=== PATIENT | female | born 1950 | race Caucasian/White ===

== ENCOUNTER → 2019-08-10 | Day surgery (SDC) | payer OTHER ==
[~2019-08-10] VITALS: Ht 157.5 cm; Wt 72.6 kg
[~2019-08-10] MED LIST: COREG6.25 MG PO; FISH OIL 1,0001 EAC9 PO; FLONASE 0.05%50 MCG NARES; LEVOXYL100 MCG PO; METFORMIN HCL500 M3 PO; NEURONTIN300 MG PO; ROSUVASTATIN CA20 MG PO; ZESTORETIC 20-1 EAC3 PO
--- NOTE | ~2019-08-10 | O ---
[facility] [place] [address] OPERATIVE REPORT Name: GILBERTO CARVALHO Room #: REG [facility]#: [id number] Admission: 08/10/19 Attend Phys: Rasta Barry MD Discharge: Date of : 48 Report #: [id number] THIS REPORT FOR: cc: CHRIS BAILEY Physician not on staff Federico Castillo MD ~ CC: CHRIS Castillo Physician staff Rasta Barry DATE OF SERVICE: 08/10/2019 PREOPERATIVE DIAGNOSES: Deviated nasal septum with nasal airway obstruction, Graves' disease with orbital proptosis. POSTOPERATIVE DIAGNOSES: Deviated nasal septum with nasal airway obstruction, Graves' disease with orbital proptosis. OPERATIVE PROCEDURE: Nasal septoplasty, left endoscopic medial and inferior orbital wall decompression in conjunction with a lateral transcutaneous decompression and tarsorrhaphy. SURGEONS: Dr. Federico Castillo and Dr. Barry. ANESTHESIA: General by laryngeal mask. DESCRIPTION OF PROCEDURE: The patient was taken to the operating room and placed in supine position. General anesthesia was induced by laryngeal mask. Once adequate general anesthesia was obtained, local nasal anesthesia was induced by submucoperichondrial injection of 1% lidocaine with 1:100,000 epinephrine and topical application of cocaine solution. The patient was then prepared and draped in a sterile manner. The patient had nasal septal deviation primarily to the left side. A hemitransfixion incision was placed on the left side of the nose and the mucoperichondrium and mucoperiosteum was elevated off the septum. The cartilage was incised in front of the bony cartilaginous junction and a portion of cartilage and bone was removed from the midportion of the septum. She had a very large septal spur at the vomer protruding into the inferior and middle meatus and this bone was rongeured and removed. The hemitransfixion incision was then closed with 4-0 chromic suture and a 4-0 plain mattress sutures placed as well. The nasal endoscope was used to visualize the left nasal cavity and the middle turbinate was deviated medially. The uncinate process was removed using the microdebrider and the natural opening maxillary sinus was located, it was enlarged in a posterior inferior manner by removing the soft fontanelle. An ethmoidectomy was performed by removing the ethmoidal bulla and then followed by the ethmoid air cells back to and through the [address] [address] OPERATIVE REPORT Name: GILBERTO CARVALHO [id number] Admission: 08/10/19 Attend Phys: Rasta Barry MD Discharge: Date of : 48 Report #: [id number] lamella and then forward along the lamina papyracea and fovea ethmoidalis to complete the ethmoidectomy anteriorly. The lamina papyracea bone was exposed from the anterior face of the sphenoid posteriorly to the fovea ethmoidalis superiorly to the root of the uncinate process anteriorly and into the maxillary sinus inferiorly. Using a blunt tipped seeker instrument, the bone was slowly chipped away to expose the underlying periorbita. The periorbita was then incised with 2 horizontal incisions, one superiorly and one inferiorly. These were then connected in the middle and the orbital fat was allowed to prolapse into the ethmoid cavity. A rolled piece of Merogel was placed between the middle turbinate and lateral wall of the nose to prevent scarring and to promote hemostasis. At this point, Dr. Barry performed a lateral transcutaneous decompression and tarsorrhaphy. At the conclusion of the procedure, the patient was then awoken and taken to the recovery room in stable condition for postoperative monitoring. Blood loss approximately 25 mL. By: 1709 1721 Federico Castillo MD /nt
--- NOTE | ~2019-08-10 | O ---
[facility] [place] [address] OPERATIVE REPORT Name: GILBERTO CARVALHO Room #: REG [facility]#: [id number] Admission: 08/10/19 Attend Phys: Rasta Barry MD Discharge: Date of : 48 Report #: [id number] THIS REPORT FOR: cc: CHRIS BAILEY Physician not on staff Rasta Barry MD ~ CC: SRAVANTHI Castillo MD Physician staff Rasta Barry DATE OF SERVICE: 08/10/2019 PREOPERATIVE DIAGNOSIS: Graves' orbitopathy. POSTOPERATIVE DIAGNOSIS: Graves' orbitopathy. PROCEDURE: Left lateral orbital decompression with temporary tarsorrhaphy. SURGEON: Rasta Barry MD. ENGINE INSTALLER: Federico Castillo MD ANESTHESIA: General. COMPLICATIONS: None. ESTIMATED BLOOD LOSS: 25 mL. INDICATIONS FOR SURGERY: This pleasant 68-year-old woman with Graves' disease and dry eyes, visual field loss, lid retraction and profound proptosis, presents for combined endoscopic medial wall and floor orbital decompression combined with a transcutaneous lateral orbital decompression and temporary tarsorrhaphy. Informed consent was obtained to include but not limited to the potential risk for loss of vision, double vision, bleeding, infection, [id number] the problem, scarring, and the potential need for further surgery including surgery for double vision. Informed consent was obtained to include but not limited to the potential risk of loss of vision, double vision, bleeding, infection, scarring, failure to improve the problem and the potential need for further surgery. DESCRIPTION OF OPERATION: The patient was taken to the operating room, where [facility] [address] [place] [address] OPERATIVE REPORT Name: GILBERTO CARVALHO Room #: REG [facility].#: [id number] Admission: 08/10/19 Attend Phys: Rasta Barry MD Discharge: Date of : 48 Report #: [id number] general anesthesia was administered. The lateral upper lid was then anesthetized with 2% Xylocaine with epinephrine mixed with equal parts of 0.75% Marcaine with Wydase. The infratemporal fossa was then anesthetized with the same anesthetic mixture. The patient was subsequently prepped and draped in the usual sterile fashion. Dr. Castillo prepared the nose with vasoconstrictive-soaked Cottonoids and intranasal mucosal injections. The patient received intravenous Decadron and antibiotics at the beginning of the procedure. After being sterilely prepped and draped, a temporary tarsorrhaphy was fashioned from a short section of IV tubing and a double-armed 5-0 nylon suture. It was placed at the junction of the medial 2/3 and the 1/3 of the eyelid. The transnasal portion of the procedure was then resumed. After the transnasal, endoscopic, medial wall and floor, and orbital decompression had been accomplished and the nose repacked with vasoconstrictive-soaked Cottonoids, the extended upper lid crease incision was reanesthetized. The Cottonoids were removed and the periosteum was opened to allow the fat transnasally to decompress into the newly created space. The nose was then repacked and gloves were changed and instruments switched out as the lateral orbital decompression was commenced. A curvilinear incision was initially outlined and then made with a 15-C blade, extending a lid crease incision into the infratemporal fossa. The dissection was then carried down to periosteum with the Ellsworth needle, obtaining hemostasis with diligent monopolar cautery. The periosteum was then sharply incised and then gently reflected medially out of the lateral orbit. The zygomatic facial and zygomatic temporal neurovascular bundles were identified and cauterized as they were encountered. The orbital contents were then retracted and protected with the malleable retractor as the skin from the inferior portion of the wound was protected with a skin rake. A 3.5-mm cutting/irrigating drill was then used to thin the bone at the lateral orbit. The anterior limit of the dissection was the lateral orbital rim. The superior and inferior limits of the dissection were the orbital roof and floor respectively. Hemostasis was reachieved with monopolar cautery and judicious use of bone wax. The periosteum of the lateral orbit was then incised with the Ellsworth needle. A large H-shaped flap in the periosteum was then created, allowing the fat to billow out into the newly created space. The periosteum was then closed with interrupted buried 5-0 Vicryl sutures. The subcutaneous structures were closed with interrupted 5-0 Vicryl sutures. The skin was then closed with 6-0 plain gut sutures. The wound was dressed with erythromycin ointment followed by Telfa pad. The temporary nasal packing was removed and absorbable nasal pack placed. [address] [address] OPERATIVE REPORT Name: WALEDonnyGILBERTO Room #: REG [facility]#: [id number] Admission: 08/10/19 Attend Phys: Rasta Barry MD Discharge: Date of : 48 Report #: [id number] The patient was subsequently transported to the recovery area, having tolerated the procedure well with no anesthetic or operative complications being noted. By: 1708 1736 Rasta Barry MD /nt
[2019-08-10 14:00] VITALS: BP 145/88
--- NOTE | 2019-08-10 17:17 | H ---
[facility] [place] [address] HISTORY AND PHYSICAL Name: GILBERTO CARVALHO Room #: REG [facility]#: [id number] Admission: 08/10/19 Attend Phys: Rasta Barry MD Discharge: Date of : 48 Report #: [id number] THIS REPORT FOR: cc: CHRIS BAILEY Physician not on staff Federico Castillo MD ~ CC: CHRIS Castillo Physician staff Rasta Barry DATE OF SERVICE: 08/10/2019 DATE OF PROCEDURE: 08/10/2019 HISTORY OF PRESENT ILLNESS: The patient has Graves' disease and has been having problems with her eyes. She has had double vision as well as loss of vision, especially on the left side. She has some mild sinus issues with difficulty breathing through her nose. A CT scan of her sinuses shows severe proptosis with hypertrophy of the extraocular muscles and orbital fat. She has a deviated nasal septum to the left side, especially in the inferior meatus indenting the inferior turbinate. PAST MEDICAL HISTORY: Otherwise significant for cervical cancer, diabetes and high blood pressure. MEDICATIONS: Include gabapentin, Synthroid, lisinopril, metformin, rosuvastatin, vitamin D. ALLERGIES: She has no known drug allergies. PHYSICAL EXAMINATION: She had quite a bit of congestion in her nose with a deviated nasal septum to the left side with the septum indenting the inferior turbinate. IMPRESSION: Graves' disease and deviated nasal septum. PLAN: Nasal septoplasty, left endoscopic medial and inferior orbital wall decompression in conjunction with a lateral transcutaneous decompression and tarsorrhaphy with Dr. Barry. <ELECTRONICALLY SIGNED> By: Federico Castillo MD 08/10/19 1717 [id number] [id number] Federico Castillo MD /nt
== END | disposition home or self-care (01) ==
LOC: OR
DX: J34.2 Deviated nasal septum (principal); J34.89 Other specified disorders of nose and nasal sinuses; E05.00 Thyrotoxicosis with diffuse goiter without thyrotoxic crisis or storm; H05.242 Constant exophthalmos, left eye; I10 Essential (primary) hypertension; E11.9 Type 2 diabetes mellitus without complications; E78.00 Pure hypercholesterolemia, unspecified; E03.9 Hypothyroidism, unspecified; Z98.890 Other specified postprocedural states; Z79.899 Other long term (current) drug therapy; Z87.891 Personal history of nicotine dependence; Z98.51 Tubal ligation status; Z85.41 Personal history of malignant neoplasm of cervix uteri; Z98.41 Cataract extraction status, right eye; Z98.42 Cataract extraction status, left eye
CPT/HCPCS: 50010; 50101; 50386; 50398; 50505; 50573; 51636; 53635; 55340; 56528; 56531; 56635; 57246; 62110; 62900; 64037; 70005

== ENCOUNTER 2019-08-24 13:00 | Day surgery (SDC) | payer OTHER ==
[~2019-08-24] VITALS: Ht 157.5 cm; Wt 71.2 kg
--- NOTE | ~2019-08-24 | H ---
[facility] [place] [address] HISTORY AND PHYSICAL Name: GILBERTO CARVALHO Room #: PRE [facility] M..#: [id number] Admission: Attend Phys: Rasta Barry MD Discharge: Date of : 48 Report #: [id number] THIS REPORT FOR: cc: CHRIS BAILEY Physician not on staff Federico Castillo MD ~ CC: CHRIS Castillo Physician staff Rasta Barry DATE OF PROCEDURE: 08/24/2019. HISTORY OF PRESENT ILLNESS: The patient has Graves' disease and has been having problems with her eyes. She has double vision as well as loss of vision, especially on the left side. She has some mild sinus issues with difficulty breathing through her nose. She underwent a nasal septoplasty and left endoscopic medial and inferior orbital wall decompression on August 09 and she is now scheduled for the right eye procedure. PAST MEDICAL HISTORY: Otherwise, significant for cervical cancer, diabetes and high blood pressure. MEDICATIONS: Gabapentin, Synthroid, lisinopril, metformin, rosuvastatin, vitamin D. ALLERGIES: She has no known drug allergies. PHYSICAL EXAMINATION: She is healing from her previous surgery with some mild crusting in her nose. IMPRESSION: Graves' disease. PLAN: Right endoscopic medial and inferior orbital wall decompression in conjunction with a lateral transcutaneous decompression and tarsorrhaphy with Dr. Barry. By: 1334 1349 Federico Castillo MD /nt
--- NOTE | ~2019-08-24 | O ---
[facility] [place] [address] OPERATIVE REPORT Name: GILBERTO CARVALHO Room #: DEP [facility].#: [id number] Admission: 08/24/19 Attend Phys: Rasta Barry MD Discharge: 08/24/19 Date of : 48 Report #: [id number] THIS REPORT FOR: cc: CHRIS BAILEY Physician not on staff Rasta Barry MD ~ CC: CHRIS Metzger MD Physician staff Rasta Barry DATE OF SERVICE: 08/24/2019 PREOPERATIVE DIAGNOSIS: Graves' disease. POSTOPERATIVE DIAGNOSIS: Graves' disease. PROCEDURE: Right lateral orbit decompression with temporary tarsorrhaphy. SURGEON: Rasta Barry MD. PATIENT COMPANION: Federico Castillo MD ANESTHESIA: General. COMPLICATIONS: None. ESTIMATED BLOOD LOSS: 25 mL. INDICATIONS FOR SURGERY: This pleasant 68-year-old woman with Graves' disease and profound proptosis, lid retraction, visual field loss and dry eyes, presents for a combined endoscopic medial wall and floor orbital decompression done in conjunction with a transcutaneous lateral orbital decompression and temporary tarsorrhaphy of the right eye. She has undergone a previous successful procedure on the opposite side. Informed consent was obtained to include but not limited to the potential risk for loss of vision, double vision, bleeding, infection, failure to improve the problem, scarring, the potential need for further surgery including surgery for double vision. Informed consent was obtained to include but not limited to the potential risk of loss of vision, double vision, bleeding, infection, scarring, failure to improve the problem and the potential need for further surgery. DESCRIPTION OF OPERATION: The patient was taken to the operating room, where [address] [address] OPERATIVE REPORT Name: GILBERTO CARVALHO Tai Room #: DEP [facility].#: [id number] Admission: 08/24/19 Attend Phys: Rasta Barry MD Discharge: 08/24/19 Date of : 48 Report #: [id number] general anesthesia was administered. The lateral upper lid was then anesthetized with 2% Xylocaine with epinephrine mixed with equal parts of 0.75% Marcaine with Wydase. The infratemporal fossa was then anesthetized with the same anesthetic mixture. The patient was subsequently prepped and draped in the usual sterile fashion. Dr. Castillo prepared the nose with vasoconstrictive-soaked Cottonoids and intranasal mucosal injections. The patient received intravenous Decadron and antibiotics at the beginning of the procedure. After being sterilely prepped and draped, a temporary tarsorrhaphy was fashioned from a short section of IV tubing and a double-armed 5-0 nylon suture. It was placed at the junction of the medial 2/3 and the 1/3 of the eyelid. The transnasal portion of the procedure was then resumed. After the transnasal, endoscopic, medial wall and floor, and orbital decompression had been accomplished and the nose repacked with vasoconstrictive-soaked Cottonoids, the extended upper lid crease incision was reanesthetized. The Cottonoids were removed and the periosteum was opened to allow the fat transnasally to decompress into the newly created space. The nose was then repacked and gloves were changed and instruments switched out as the lateral orbital decompression was commenced. A curvilinear incision was initially outlined and then made with a 15-C blade, extending a lid crease incision into the infratemporal fossa. The dissection was then carried down to periosteum with the Ellsworth needle, obtaining hemostasis with diligent monopolar cautery. The periosteum was then sharply incised and then gently reflected medially out of the lateral orbit. The zygomatic facial and zygomatic temporal neurovascular bundles were identified and cauterized as they were encountered. The orbital contents were then retracted and protected with the malleable retractor as the skin from the inferior portion of the wound was protected with a skin rake. A 3.5-mm cutting/irrigating drill was then used to thin the bone at the lateral orbit. The anterior limit of the dissection was the lateral orbital rim. The superior and inferior limits of the dissection were the orbital roof and floor respectively. Hemostasis was reachieved with monopolar cautery and judicious use of bone wax. The periosteum of the lateral orbit was then incised with the Ellsworth needle. A large H-shaped flap in the periosteum was then created, allowing the fat to billow out into the newly created space. The periosteum was then closed with interrupted buried 5-0 Vicryl sutures. The subcutaneous structures were closed with interrupted 5-0 Vicryl sutures. The skin was then closed with 6-0 plain gut sutures. The wound was dressed with erythromycin ointment followed by Telfa pad. The temporary nasal packing was removed and absorbable nasal pack placed. [facility] [address] [place] [address] OPERATIVE REPORT Name: GILBERTO CARVALHO [facility]: [facility]#: [id number] Admission: 08/24/19 Attend Phys: Rasta Barry MD Discharge: 08/24/19 Date of : 48 Report #: [id number] The patient was subsequently transported to the recovery area, having tolerated the procedure well with no anesthetic or operative complications being noted. By: 1657 1821 Rasta Barry MD /nt
--- NOTE | ~2019-08-24 | O ---
[facility] [place] [address] OPERATIVE REPORT Name: GILBERTO CARVALHO Room #: 150-5 [facility]#: [id number] Admission: 08/24/19 Attend Phys: Rasta Barry MD Discharge: Date of : 48 Report #: [id number] THIS REPORT FOR: cc: CHRIS BAILEY Physician not on staff Federico Castillo MD ~ CC: CHRIS Castillo Physician staff Rasta Barry DATE OF SERVICE: 08/24/2019 PREOPERATIVE DIAGNOSIS: Graves' disease. POSTOPERATIVE DIAGNOSIS: Graves' disease. OPERATIVE PROCEDURE: Endoscopic right medial and inferior orbital wall decompression in conjunction with a lateral transcutaneous decompression and tarsorrhaphy. SURGEONS: Dr. Castillo and Dr. Barry ANESTHESIA: General by laryngeal mask. DESCRIPTION OF PROCEDURE: The patient was taken to the operating room and placed in the supine position. General anesthesia was induced by laryngeal mask. Once adequate general anesthesia was obtained, local nasal anesthesia was induced by submucoperiosteal injection of 1% lidocaine with 1:100,000 epinephrine and topical application of cocaine solution. The patient was then prepared and draped in a sterile manner. The nasal endoscope was used to visualize the left nasal cavity. I debrided the left side in the middle meatus removing old blood from the maxillary sinus and from the ethmoid air cells and removing the remainder of the Merogel that was in it. On the right side, the middle turbinate was deviated medially. The uncinate process was removed using the microdebrider and opening of the maxillary sinus was located. It was enlarged in a posterior inferior manner by removing the soft fontanelle. An ethmoidectomy was performed by removing the ethmoidal bulla and then following the ethmoid air cells back to and through the basal lamella and then forward along the lamina papyracea and fovea ethmoidalis to complete the ethmoidectomy anteriorly. The lamina papyracea bone was exposed from the anterior face of the sphenoid posteriorly to the fovea ethmoidalis superiorly to the root of the uncinate process anteriorly and into the maxillary sinus inferiorly. Using a blunt tipped seeker instrument, the lamina papyracea bone was slowly chipped away to expose the underlying periorbita. The periorbita was then incised with 2 horizontal incisions, one superiorly, one inferiorly. They were then [address] [address] OPERATIVE REPORT Name: GILBERTO CARVALHO Room #: 150-5 [facility]#: [id number] Admission: 08/24/19 Attend Phys: Rasta Barry MD Discharge: Date of : 48 Report #: [id number] connected in the middle and the orbital fat was allowed to prolapse into the ethmoid cavity. A piece of Merogel was placed between the middle turbinate and lateral wall of the nose to prevent scarring and to promote hemostasis. At this point, Dr. Barry performed a lateral transcutaneous decompression and tarsorrhaphy. At the conclusion, the patient was then awoken and taken to recovery room in stable condition for postoperative monitoring. Blood loss approximately 25 mL. By: 1657 1724 Federico Castillo MD /nt
[~2019-08-24 13:00] MED LIST changes: +VITAMIN E400 UNIT PO
[2019-08-24 17:04] VITALS: BP 113/48
== END 2019-08-24 17:50 | disposition home or self-care (01) ==
LOC: OR 13:00 → TBA 13:12 → OR 13:57
DX: E05.00 Thyrotoxicosis with diffuse goiter without thyrotoxic crisis or storm (principal); I10 Essential (primary) hypertension; E78.00 Pure hypercholesterolemia, unspecified; E11.9 Type 2 diabetes mellitus without complications; E03.9 Hypothyroidism, unspecified; G62.9 Polyneuropathy, unspecified; Z98.890 Other specified postprocedural states; Z79.899 Other long term (current) drug therapy; Z87.891 Personal history of nicotine dependence; Z98.51 Tubal ligation status; Z98.41 Cataract extraction status, right eye; Z98.42 Cataract extraction status, left eye; Z90.49 Acquired absence of other specified parts of digestive tract; Z85.41 Personal history of malignant neoplasm of cervix uteri; Z11.59 Encounter for screening for other viral diseases
CPT/HCPCS: 50010; 50101; 50386; 50398; 50505; 51636; 53635; 55340; 56524; 56528; 62110; 62900; 64037; 70005